=== PATIENT | female | born 1975 | race Caucasian/White ===

== ENCOUNTER → 2025-02-11 11:33 | Outpatient (REF) | payer BC, SELFPAY | LOC: WDC 11:33 | PROVIDERS: ATTENDING PHYSICIAN Nurse Practitioner Family | DX: Z12.31 Encounter for screening mammogram for malignant neoplasm of breast (principal) | CPT/HCPCS: 77063; 77067 ==

== ENCOUNTER → 2025-03-26 14:55 | Outpatient (REF) | payer BC, SELFPAY | LOC: RCS 14:55 | PROVIDERS: ATTENDING PHYSICIAN Internal Medicine Cardiovascular Disease; FAMILY PHYSICIAN Nurse Practitioner Family | DX: R00.2 Palpitations (principal); R07.9 Chest pain, unspecified; R63.5 Abnormal weight gain | CPT/HCPCS: 93306 ==

== ENCOUNTER → 2025-03-30 07:49 | Outpatient (REF) | payer BC, SELFPAY | LOC: RCS 07:49 | PROVIDERS: ATTENDING PHYSICIAN Internal Medicine Cardiovascular Disease; FAMILY PHYSICIAN Nurse Practitioner Family | DX: R00.2 Palpitations (principal); R07.9 Chest pain, unspecified; R63.5 Abnormal weight gain | CPT/HCPCS: 93017 ==